=== PATIENT | male | born 1945 | race Two or more races ===

== ENCOUNTER 2017-09-01 07:19 | Day surgery (SDC) | payer MEDICARE, OTHER, MEDICAID ==
[2017-09-01] MEDS ORDERED: PROPOFOL 40 ML (08:57)
[2017-09-01] MEDS ORDERED: LIDOCAINE 100 MG SYRINGE (08:57)
== END 2017-09-01 11:37 | disposition home or self-care (01) ==
LOC: GIL 07:19
DX: R19.4 Change in bowel habit (principal); D12.6 Benign neoplasm of colon, unspecified; K64.8 Other hemorrhoids; E11.9 Type 2 diabetes mellitus without complications; I10 Essential (primary) hypertension; E66.01 Morbid (severe) obesity due to excess calories; Z68.38 Body mass index [BMI] 38.0-38.9, adult
CPT/HCPCS: 45380; 82962; 88305